=== PATIENT | male | born 1995 ===

== ENCOUNTER 2017-11-24 02:56 | Emergency (ER) | payer OTHER, MEDICARE ==
[2017-11-24 03:55] VITALS: TEMP 98.4
[2017-11-24] MEDS ORDERED: DiphenhydrAMINE 50 mg/ml Inj IM STA (04:22)
--- NOTE | 2017-11-24 04:56 | ED PDOC ---
HPI: Headache Time Seen by Provider: 11/24/17 04:05 Chief Complaint (Nursing): Headache Chief Complaint (Provider): Headache History Per: Patient History/Exam Limitations: no limitations Onset/Duration Of Symptoms: Days (x4) Current Symptoms Are (Timing): Still Present Additional Complaint(s): 22 year old male presents to the emergency department complaining of an intermittent thunderclap right sided temporal head ache onset four days. Currently patient notes it is worse on his left side, however. He reports taking Advil and Tylenol for the pain but states it provides no relief. Denies neck pain, fever, nausea, chest pain, and vomiting. He does say that he has been stressing out a lot recently due to his OCD. PMD: Pablo Cosme Past Medical History Reviewed: Historical Data, Nursing Documentation, Vital Signs Vital Signs: Last Vital Signs Temp 98.4 F 11/24/17 03:53 Pulse 68 11/24/17 03:53 Resp 16 11/24/17 03:53 BP 149/97 H 11/24/17 03:53 Pulse Ox 98 11/24/17 03:53 - Medical History PMH: Bipolar Disorder, Depression, Schizophrenia Denies: Diabetes, Hepatitis, HIV, HTN, Chronic Kidney Disease, Seizures, Sexually Transmitted Disease - Surgical History Surgical History: No Surg Hx - Family History Family History: States: Unknown Family Hx - Social History Current smoker - smoking cessation education provided: No Alcohol: None Drugs: Denies - Immunization History Hx Tetanus Toxoid Vaccination: No Hx Influenza Vaccination: No Hx Pneumococcal Vaccination: No - Home Medications Home Medications: Ambulatory Orders Medication Instructions Recorded Fluoxetine Hydrochloride [Prozac] 40 mg PO DAILY 06/06/14 Ibuprofen [Motrin] 600 mg PO Q8 #30 tab 06/17/15 OXcarbazepine [Trileptal] 150 mg PO BID #60 tab 07/08/15 DiphenhydrAMINE [Benadryl] 1 - 2 cap PO Q6H PRN #30 cap 11/24/17 - Allergies Allergies/Adverse Reactions: Allergies Allergy/AdvReac Type Severity Reaction Status Date / Time No Known Allergies Allergy Verified 07/06/15 17:51 Review of Systems ROS Statement: Except As Marked, All Systems Reviewed And Found Negative Constitutional: Negative for: Fever Cardiovascular: Negative for: Chest Pain Gastrointestinal: Negative for: Nausea, Vomiting Musculoskeletal: Negative for: Neck Pain Neurological: Positive for: Headache (right sided temporal thunderclap CRZU, but notes it is worse on the left currently) Physical Exam - Reviewed Nursing Documentation Reviewed: Yes Vital Signs Reviewed: Yes - Physical Exam Appears: Positive for: No Acute Distress Head Exam: Positive for: ATRAUMATIC, NORMOCEPHALIC Skin: Positive for: Normal Color, Warm, Dry Eye Exam: Positive for: Normal appearance, EOMI, PERRL Neck: Positive for: Normal, Painless ROM, Supple Cardiovascular/Chest: Positive for: Regular Rate, Rhythm. Negative for: Murmur Respiratory: Positive for: Normal Breath Sounds. Negative for: Accessory Muscle Use, Respiratory Distress Gastrointestinal/Abdominal: Positive for: Normal Exam, Soft. Negative for: Tenderness Back: Positive for: Normal Inspection Extremity: Positive for: Normal ROM Neurologic/Psych: Positive for: Alert, Oriented (x3). Negative for: Motor/ Sensory Deficits - ECG O2 Sat by Pulse Oximetry: 98 (RA) Pulse Ox Interpretation: Normal - Progress Re-evaluation Time: 06:30 Condition: Re-examined, Improved Medical Decision Making Medical Decision Making: Initial Impression: headaches Ddx: tension headaches, migraines, and likely brain mass Time: 4:22 Initial Plan: --Head CT w/o contrast --Benadryl 25mg IM --Reglan 10mg IM --Motrin 400mg PO 6:30 CT Head FINDINGS: Brain: No intracranial hemorrhage. No mass. No definite edema. Ventricles: No hydrocephalus. Bones/joints: No acute fracture. Soft tissues: Unremarkable. Sinuses: No acute sinusitis. Mastoid air cells: No mastoid effusion. Orbits: Unremarkable as visualized. IMPRESSION: 1. No definite acute intracranial abnormality. Scribe Attestation: Documented by Alia Nova, acting as a scribe for Gerasim A Orbelyan, MD Provider Scribe Attestation: All medical entries made by the Scribe were at my direction and personally dictated by me. I have reviewed the chart and agree that the record accurately reflects my personal performance of the history, physical exam, medical decision making, and the department course for this patient. I have also personally directed, reviewed, and agree with the discharge instructions and disposition. Disposition - Clinical Impression Clinical Impression: Headache - Patient ED Disposition Is Patient to be Admitted: No Doctor Will See Patient In The: Office Counseled Patient/Family Regarding: Studies Performed, Diagnosis, Need For Followup - Disposition Referrals: [facility] [Outside] Disposition: Routine/Home Disposition Time: 06:30 Condition: GOOD Additional Instructions: Follow up with your PCP in 2-3 days. Prescriptions: DiphenhydrAMINE [Benadryl] 1 - 2 cap PO Q6H PRN #30 cap PRN Reason: Itching / Pruritus Instructions: Headache, Adult (DC)
--- NOTE | 2017-11-24 06:30 | CT ---
EXAM: CT Head Without Intravenous Contrast CLINICAL HISTORY: 22 years old, male; Pain; Headache; Additional info: Right temporal headaches TECHNIQUE: Axial computed tomography images of the head/brain without intravenous contrast. All CT scans at this facility use one or more dose reduction techniques, viz.: automated exposure control; ma/kV adjustment per patient size (including targeted exams where dose is matched to indication; i.e. head); or iterative reconstruction technique. Coronal and sagittal reformatted images were created and reviewed. COMPARISON: CT - HEAD W/O CONTRAST 2015-06-17 21:15 FINDINGS: Brain: No intracranial hemorrhage. No mass. No definite edema. Ventricles: No hydrocephalus. Bones/joints: No acute fracture. Soft tissues: Unremarkable. Sinuses: No acute sinusitis. Mastoid air cells: No mastoid effusion. Orbits: Unremarkable as visualized. IMPRESSION: 1. No definite acute intracranial abnormality.
[2017-11-24 06:48] VITALS: BP 130/75; PULSE 57; RESP 24
[2017-11-24 20:21] VITALS: O2SAT 98
== END 2017-11-24 07:02 | disposition home or self-care (01) ==
LOC: H.ER 02:56
DX: R51 Headache (principal)
CPT/HCPCS: 70450; 96372; 99285; J1200; J2765

== ENCOUNTER 2018-01-14 01:01 | Emergency (ER) | payer MEDICARE, OTHER ==
[2018-01-14 02:32] VITALS: RESP 18; O2SAT 98
--- NOTE | 2018-01-14 03:23 | ED PDOC ---
HPI: Dental Pain/Injury Time Seen by Provider: 01/14/18 02:31 Chief Complaint (Nursing): Dental Pain History Per: Patient History/Exam Limitations: no limitations Onset/Duration Of Symptoms: Days Current Symptoms Are (Timing): Still Present Additional Complaint(s): Hx of bipolar disorder presenting with dental pain, states that he has an appointment tomorrow with his dentist to get evaluated for possible extraction. Denies fevers, drainage, headache. Past Medical History Reviewed: Historical Data, Nursing Documentation, Vital Signs Vital Signs: Last Vital Signs Temp 98.0 F 01/14/18 02:28 Pulse 67 01/14/18 02:28 Resp 18 01/14/18 02:28 BP 155/101 H 01/14/18 02:28 Pulse Ox 98 01/14/18 02:28 - Medical History PMH: Bipolar Disorder, Depression, Schizophrenia Denies: Diabetes, Hepatitis, HIV, HTN, Chronic Kidney Disease, Seizures, Sexually Transmitted Disease - Family History Family History: States: Unknown Family Hx - Immunization History Hx Tetanus Toxoid Vaccination: No Hx Influenza Vaccination: No Hx Pneumococcal Vaccination: No - Home Medications Home Medications: Ambulatory Orders Medication Instructions Recorded Fluoxetine Hydrochloride [Prozac] 40 mg PO DAILY 06/06/14 Ibuprofen [Motrin] 600 mg PO Q8 #30 tab 06/17/15 OXcarbazepine [Trileptal] 150 mg PO BID #60 tab 07/08/15 DiphenhydrAMINE [Benadryl] 1 - 2 cap PO Q6H PRN #30 cap 11/24/17 FLUoxetine [Fluoxetine HCl] 20 mg PO DAILY #15 cap 12/06/17 - Allergies Allergies/Adverse Reactions: Allergies Allergy/AdvReac Type Severity Reaction Status Date / Time aripiprazole [From Abilify] Allergy SHORTNESS Verified 12/06/17 17:22 OF BREATH Review of Systems ROS Statement: Except As Marked, All Systems Reviewed And Found Negative ENT: Positive for: Other (Tooth Pain) Physical Exam - Reviewed Nursing Documentation Reviewed: Yes Vital Signs Reviewed: Yes - Physical Exam Appears: Positive for: Well, Non-toxic, No Acute Distress Head Exam: Positive for: ATRAUMATIC, NORMAL INSPECTION, NORMOCEPHALIC Skin: Positive for: Normal Color, Warm, DRY ENT: Positive for: Other (No facial swelling, erythema; poor dentition, no evidence of pulpitis, teeth 29-32 nontender on palpation) - ECG O2 Sat by Pulse Oximetry: 98 Pulse Ox Interpretation: Normal Medical Decision Making Medical Decision Making: Patient with tooth pain No infection suspected Will give NSAID Advised followup with dentist tomorrow as scheduled Disposition - Clinical Impression Clinical Impression: Dental caries - Disposition Referrals: [facility] [Outside] Disposition: Routine/Home Disposition Time: 02:30 Condition: STABLE Instructions: Dental Pain (DC) Forms: [employer] (Tanzanian)
[2018-01-14 03:26] VITALS: BP 132/94; PULSE 74; TEMP 98.2
== END 2018-01-14 03:05 | disposition home or self-care (01) ==
LOC: H.ER 01:01
DX: K02.9 Dental caries, unspecified (principal)
CPT/HCPCS: 96372; 99283; J1885

== ENCOUNTER 2018-07-29 11:40 | Emergency (ER) | payer MEDICARE, OTHER ==
[2018-07-29 11:45] VITALS: TEMP 98.2
[2018-07-29] MEDS ORDERED: Amoxicillin-Clav 875-125 mg Tab PO STA (13:35)
[2018-07-29] MEDS ORDERED: Amoxicillin-Clav 875-125 mg Tab PO ONE (13:40)
--- NOTE | 2018-07-29 13:47 | ED PDOC ---
HPI: Headache Time Seen by Provider: 07/29/18 12:24 Chief Complaint (Nursing): Headache Chief Complaint (Provider): Headache/ Dental Pain; Med Refill History Per: Patient, Family (mother at bedside) History/Exam Limitations: no limitations Onset/Duration Of Symptoms: Days (x2) Current Symptoms Are (Timing): Still Present Quality: Pressure Additional Complaint(s): Patient is a 23 year old male who presents to the ED for evaluation of right upper dental pain and a right sided headache x 2 days. Patient reports that he had his wisdom teeth extracted 1 year ago and has not been to the dentist since. Patient further reports the headache and dental pain interfered with his ability to sleep last night. Patient took no medications prior to arrival for symptoms. He does note a foul odor to his breath recently as well. Of note, mother at bedside is requesting the patient's Prozac prescription be refilled. Mother notes that the patient has an upcoming appt with Dr Sun on 07/31/18, and that the patient has been out of his Prozac since the middle of June. Patient denies SI, HI, A/V hallucinations, fever, dizziness, ear pain, throat pain, cough, SOB, N/V/D, abdominal pain, facial swelling. PMD: unknown Past Medical History Reviewed: Historical Data, Nursing Documentation, Vital Signs Vital Signs: Last Vital Signs Temp 98.2 F 07/29/18 11:45 Pulse 76 07/29/18 11:45 Resp 18 07/29/18 11:45 BP 142/88 07/29/18 11:45 Pulse Ox 99 07/29/18 11:45 - Medical History PMH: Bipolar Disorder, Depression Other PMH: OCD - Surgical History Other surgeries: wisdom teeth extraction - Family History Family History: States: Unknown Family Hx - Living Arrangements Living Arrangements: With Family - Social History Current smoker - smoking cessation education provided: No Alcohol: None Drugs: Denies - Home Medications Home Medications: Ambulatory Orders Medication Instructions Recorded Fluoxetine HCl [Prozac] 40 mg PO DAILY 06/26/18 Acetaminophen [Acetaminophen 8 650 mg PO Q8 PRN #21 tablet.er 07/29/18 Hour] Amoxicillin/Clavulanate [Augmentin 1 tab PO BID #14 tab 07/29/18 875 MG-125 MG] Fluoxetine HCl [Prozac] 40 mg PO DAILY #7 capsule 07/29/18 RX: Ibuprofen [Motrin Tab] 800 mg PO Q8 PRN #21 tab 07/29/18 - Allergies Allergies/Adverse Reactions: Allergies Allergy/AdvReac Type Severity Reaction Status Date / Time aripiprazole [From Abilify] Allergy SHORTNESS Verified 06/26/18 22:06 OF BREATH Review of Systems ROS Statement: Except As Marked, All Systems Reviewed And Found Negative ENT: Positive for: Other (right upper tooth pain) Neurological: Positive for: Headache Physical Exam - Reviewed Nursing Documentation Reviewed: Yes Vital Signs Reviewed: Yes - Physical Exam Comments: GENERALIZED APPEARANCE: Patient is awake, alert, oriented x3 in no acute distress.Resting comfortably. SKIN: Warm, dry; (-) cyanosis; (-) rash. HEAD: (-) scalp swelling or tenderness EYES: (-) conjunctival pallor, (-) scleral icterus. ENMT:TMs: nonbulging and nonerythematous. Pharynx: clear uvula midline (-) exudate (-) erythema. (-) sinus tenderness; mucous membranes moist. Airway patent, (-) stridor. (+) tenderness to upper, right 1st and 2nd molars (-) gingival inflammation, fluctuance (-) tongue elevation (+) dental plaque (+) foul odor to breath NECK:Supple, FROM (-) tenderness, (-) stiffness, (-) meningismus, (-) lymphadenopathy. CHEST AND RESPIRATORY: (-) rales, (-) rhonchi, (-) wheezes; breath sounds equal bilaterally. Respirations even and nonlabored. HEART AND CARDIOVASCULAR: (-) irregularity ABDOMEN AND GI: Soft; (-) tenderness. EXTREMITIES: (-) deformity. NEURO AND PSYCH: Mental status as above. melter assistant: Pupilsequal and reactive; EOMI and painless; (-) facial asymmetry; tongue and uvula midline. Strength and sensation symmetric throughout.Speech: clear. Gait: steady. Cerebellar tests intact. - ECG O2 Sat by Pulse Oximetry: 99 (RA) Pulse Ox Interpretation: Normal Medical Decision Making Medical Decision Makin Initial Impression: Dental pain, Headache; Medication Refill Plan: -Toradol 30mg IM -Augmentin 875mg PO -Crisis Evaluation -Re-evaluation 1455 Per crisis evaluation, patient to be supplied with a week refill of Prozac 40mg QID. Patient to follow up with Dr Sun/Clinic as scheduled. On re-evaluation, patient reports improvement of symptoms. On exam, patient remains AAOx3, in no acute distress. Vitals stable. Lab/Diagnostic results d/w the patient in great detail. Diagnosis of acute dental pain, probable dental infection; headache, medication refill d/w the patient. Based on history, exam and diagnostic results, plan will be for outpatient follow up with dental/psych. Patient instructed to follow-up with pmd / referral provided / the clinic in 1- 2 days without fail. Advised to take medication as prescribed. Return to the emergency room at any time for any new or worsening symptoms. Patient states he fully agrees with and understands discharge instructions. States that he agrees with the plan and disposition. Verbalized and repeated discharge instructions and plan. I have given the patient opportunity to ask any additional questions. Disposition - Clinical Impression Clinical Impression: Pain, dental, Dental infection, Headache, Medication refill - Patient ED Disposition Is Patient to be Admitted: No Counseled Patient/Family Regarding: Studies Performed, Diagnosis, Need For Followup, Rx Given - Disposition Referrals: [facility] [Outside] your, dentist [Other] Shital Sun MD [Staff Provider] - Disposition: Routine/Home Disposition Time: 14:55 Condition: STABLE Additional Instructions: The emergency medical care you received today was directed at your acute symptoms. If you were prescribed any medication, please fill it and take as directed. It may take several days for your symptoms to resolve. Return to the Emergency Department if your symptoms worsen, do not improve, or if you have any other problems. Please contact your doctor in 2 days for re-evaluation and follow up / or call one of the physicians/clinics you have been referred to that are listed on the Patient Visit Information form that is included in your discharge packet. Bring any paperwork you were given at discharge with you along with any medications you are taking to your follow up visit. Our treatment cannot replace ongoing medical care by a primary care provider (PCP) outside of the emergency department. Prescriptions: Acetaminophen [Acetaminophen 8 Hour] 650 mg PO Q8 PRN #21 tablet.er PRN Reason: Pain, Moderate (4-7) Amoxicillin/Clavulanate [Augmentin 875 MG-125 MG] 1 tab PO BID #14 tab Fluoxetine HCl [Prozac] 40 mg PO DAILY #7 capsule RX: Ibuprofen [Motrin Tab] 800 mg PO Q8 PRN #21 tab PRN Reason: Pain, Moderate (4-7) Instructions: Headache, Adult, Tooth Decay, Adult (DC), Dental Pain (DC) Forms: [employer] (Kinyarwanda) Print Language: HEBREW - POA Present On Arrival: None
[2018-07-29 15:15] VITALS: BP 135/80; PULSE 88; RESP 20
[2018-07-30 22:01] VITALS: O2SAT 99
== END 2018-07-29 15:12 | disposition home or self-care (01) ==
LOC: H.ER 11:40
DX: Z76.0 Encounter for issue of repeat prescription (principal); K04.7 Periapical abscess without sinus; R51 Headache
CPT/HCPCS: 96372; 99285; J1885

== ENCOUNTER 2018-10-08 00:47 | Emergency (ER) | payer MEDICARE, OTHER ==
[2018-10-08 01:06] VITALS: RESP 16; O2SAT 99
[2018-10-08] MEDS ORDERED: Sodium Chloride 0.9% 1,000 ML IV STA (01:42)
--- NOTE | 2018-10-08 01:44 | ED PDOC ---
HPI: Headache Time Seen by Provider: 10/08/18 01:16 Chief Complaint (Nursing): Headache Chief Complaint (Provider): headache History Per: Patient, Family History/Exam Limitations: no limitations Onset/Duration Of Symptoms: Days (1 week), Waxing/Waning Current Symptoms Are (Timing): Still Present Quality: "Pain" Additional Complaint(s): 23 y/o male presents for evaluation of intermittent left-sided headache x 1 week. Mother reports patient has had migraine headaches for the last 4 years. Patient reports decreased appetite due to pain; states has not been taking medication for the pain. Denies fever, dizziness, nausea/vomiting, extremity numbness/weakness, neck pain, chest pain, shortness of breath, palpitations. Past Medical History Reviewed: Historical Data, Nursing Documentation, Vital Signs Vital Signs: Last Vital Signs Temp 98.5 F 10/08/18 01:04 Pulse 90 10/08/18 01:04 Resp 16 10/08/18 01:04 BP 143/91 H 10/08/18 01:04 Pulse Ox 99 10/08/18 01:04 Primary Care Physician: Pablo Cosme MD - Medical History PMH: Bipolar Disorder, Depression, Schizophrenia Denies: Diabetes, Hepatitis, HIV, HTN, Chronic Kidney Disease, Seizures, Sexually Transmitted Disease - Surgical History Surgical History: No Surg Hx - Family History Family History: States: Unknown Family Hx - Immunization History Hx Tetanus Toxoid Vaccination: No Hx Influenza Vaccination: No Hx Pneumococcal Vaccination: No - Home Medications Home Medications: Ambulatory Orders Medication Instructions Recorded Fluoxetine HCl [Prozac] 40 mg PO DAILY 06/26/18 Acetaminophen [Acetaminophen 8 650 mg PO Q8 PRN #21 tablet.er 07/29/18 Hour] Amoxicillin/Clavulanate [Augmentin 1 tab PO BID #14 tab 07/29/18 875 MG-125 MG] Fluoxetine HCl [Prozac] 40 mg PO DAILY #7 capsule 07/29/18 Ibuprofen [Motrin Tab] 800 mg PO Q8 PRN #21 tab 07/29/18 Naproxen [Naprosyn] 500 mg PO Q12 PRN #14 tablet 10/08/18 - Allergies Allergies/Adverse Reactions: Allergies Allergy/AdvReac Type Severity Reaction Status Date / Time aripiprazole [From Abilify] Allergy SHORTNESS Verified 06/26/18 22:06 OF BREATH Review of Systems ROS Statement: Except As Marked, All Systems Reviewed And Found Negative Neurological: Positive for: Headache Physical Exam - Reviewed Nursing Documentation Reviewed: Yes Vital Signs Reviewed: Yes - Physical Exam Appears: Positive for: Well, Non-toxic, No Acute Distress Head Exam: Positive for: ATRAUMATIC, NORMAL INSPECTION, NORMOCEPHALIC Skin: Positive for: Normal Color Eye Exam: Positive for: Normal appearance ENT: Positive for: Normal ENT Inspection Cardiovascular/Chest: Positive for: Regular Rate, Rhythm Respiratory: Positive for: Normal Breath Sounds Gastrointestinal/Abdominal: Positive for: Normal Exam Back: Positive for: Normal Inspection Extremity: Positive for: Normal ROM Neurological/Psych: Positive for: Awake, Alert, Oriented (x3) - Laboratory Results Result Diagrams: 10/08/18 02:14 10/08/18 02:14 - ECG O2 Sat by Pulse Oximetry: 99 - Progress ED Course And Treament: -toradol mother requesting blood work -cbc -cmp -IV NS bolus On re-eval, patient resting comfortably; states headache resolved Patient educated on findings, discharged with rx Naproxen Advised follow up PMD within 2-3 days Return precautions given Disposition - Clinical Impression Clinical Impression: Headache - Patient ED Disposition Is Patient to be Admitted: No Counseled Patient/Family Regarding: Studies Performed, Diagnosis, Need For Followup, Rx Given - Disposition Referrals: Pablo Cosme MD [Primary Care Provider] - Disposition: Routine/Home Disposition Time: 03:20 Condition: IMPROVED Prescriptions: Naproxen [Naprosyn] 500 mg PO Q12 PRN #14 tablet PRN Reason: Pain, Moderate (4-7) Instructions: Headache, Adult
[2018-10-08 02:24] LABS: BASO % 0.5 % (0.0-2.0); EOS # 0.1 K/uL (0.0-0.7); EOS % 1.5 % (0.0-4.0); HEMOGLOBIN 15.8 g/dL (12.0-18.0); LYMPH % 30.3 % (20.0-40.0); MEAN CELL VOLUME 87.2 fl (80.0-94.0); MEAN CORPUSCULAR HEMOGLOBIN 29.8 pg (27.0-31.0); MEAN CORPUSCULAR HGB CONC 34.2 g/dL (33.0-37.0); MEAN PLATELET VOLUME 8.5 fl (7.2-11.7); MONO # 0.8 K/uL (0.0-0.8); MONO % 7.9 % (0.0-10.0); NEUT % 59.8 % (50.0-75.0); RBC 5.32 Mil/uL (4.40-5.90); RED CELL DISTRIBUTION WIDTH 13.7 % (11.5-14.5); WHITE BLOOD COUNT 9.9 K/uL (4.8-10.8)
[2018-10-08 02:44] LABS: ALB/GLOB RATIO 1.6 (1.0-2.1)
[2018-10-08 03:08] LABS: ALBUMIN 4.7 g/dL (3.5-5.0); ALT/SGPT 25 U/L (21-72); AST/SGOT 41 U/L (17-59); BLOOD UREA NITROGEN 7 mg/dl (9-20); CALCIUM 9.7 mg/dL (8.4-10.2); GFR NON-AFRICAN AMERICAN > 60
[2018-10-08 03:42] VITALS: BP 134/86; PULSE 86; TEMP 98.1
== END 2018-10-08 03:30 | disposition home or self-care (01) ==
LOC: H.ER 00:47
DX: R51 Headache (principal); Z86.59 Personal history of other mental and behavioral disorders
CPT/HCPCS: 80053; 85025; 96374; 99285; J1885; J7030

== ENCOUNTER 2018-10-14 10:58 | Emergency (ER) | payer MEDICARE, OTHER ==
[2018-10-14 11:08] VITALS: BP 142/90; PULSE 81; TEMP 98.6; O2SAT 99
[2018-10-14 11:09] VITALS: BMI 30.5
--- NOTE | 2018-10-14 13:02 | RAD ---
Date of service: 10/14/2018 HISTORY: Cough COMPARISON: 06/07/2014. TECHNIQUE: Chest PA and lateral views FINDINGS: LUNGS: No active pulmonary disease. PLEURA: No significant pleural effusion identified. No pneumothorax apparent. CARDIOVASCULAR: No aortic atherosclerotic calcification present. Normal cardiac size. No pulmonary vascular congestion. OSSEOUS STRUCTURES: No significant abnormalities. VISUALIZED UPPER ABDOMEN: Normal. OTHER FINDINGS: None. IMPRESSION: No active pulmonary disease. No significant interval change compared to the prior examination(s).
--- NOTE | 2018-10-14 13:05 | ED PDOC ---
HPI: CCC, URI, Sore Throat Time Seen by Provider: 10/14/18 11:15 Chief Complaint (Nursing): Cough, Cold, Congestion History Per: Patient, Family History/Exam Limitations: no limitations Onset/Duration Of Symptoms: Days Additional Complaint(s): 23 yo M presenting with 5 days of cough productive of clear mucus, cough is worse at night, feels like he is choking on his saliva. He reports pain to his back when he is coughing only. He also notes some nasal congestion. Pt's sister had a cough but got better. He denies any fevers, recent travel, sore throat, difficulty breathing, SOB. PMD: Dr. Cosme Past Medical History Reviewed: Historical Data, Nursing Documentation, Vital Signs Vital Signs: Last Vital Signs Temp 98.6 F 10/14/18 11:07 Pulse 81 10/14/18 11:07 Resp 18 10/14/18 11:07 BP 142/90 10/14/18 11:07 Pulse Ox 99 10/14/18 11:07 - Medical History PMH: Bipolar Disorder, Depression, Schizophrenia Denies: Diabetes, Hepatitis, HIV, HTN, Chronic Kidney Disease, Seizures, Sexually Transmitted Disease - Family History Family History: States: Unknown Family Hx - Immunization History Hx Tetanus Toxoid Vaccination: No Hx Influenza Vaccination: No Hx Pneumococcal Vaccination: No - Home Medications Home Medications: Ambulatory Orders Medication Instructions Recorded Fluoxetine HCl [Prozac] 40 mg PO DAILY 06/26/18 Acetaminophen [Acetaminophen 8 650 mg PO Q8 PRN #21 tablet.er 07/29/18 Hour] Amoxicillin/Clavulanate [Augmentin 1 tab PO BID #14 tab 07/29/18 875 MG-125 MG] Fluoxetine HCl [Prozac] 40 mg PO DAILY #7 capsule 07/29/18 Ibuprofen [Motrin Tab] 800 mg PO Q8 PRN #21 tab 07/29/18 Naproxen [Naprosyn] 500 mg PO Q12 PRN #14 tablet 10/08/18 Albuterol HFA [Ventolin HFA 90 1 puff IH Q6 #1 inhaler 10/14/18 mcg/actuation (8 g)] Azithromycin [Z-Marcos] 250 mg PO DAILY 5 Days #6 tab 10/14/18 predniSONE [predniSONE Tab] 20 mg PO DAILY 6 Days #11 tab 10/14/18 - Allergies Allergies/Adverse Reactions: Allergies Allergy/AdvReac Type Severity Reaction Status Date / Time aripiprazole [From Abilify] Allergy SHORTNESS Verified 10/14/18 11:13 OF BREATH Review of Systems Constitutional: Negative for: Fever Cardiovascular: Positive for: Chest Pain (when coughing) Respiratory: Positive for: Cough. Negative for: Shortness of Breath, Hemoptysis, SOB with Exertion, Pleuritic Pain, Wheezing Physical Exam - Reviewed Nursing Documentation Reviewed: Yes Vital Signs Reviewed: Yes - Physical Exam Comments: GENERAL APPEARANCE: Patient is awake, alert, oriented x 3, in no acute distress. SKIN: Warm, dry; (-) cyanosis. EYES: (-) conjunctival pallor. ENMT: Mucous membranes moist. Airway patent: (-) stridor. Pharynx: (-) swelling, (-) erythema, (-) exudate. NECK: (-) tenderness, (-) stiffness, (-) lymphadenopathy. CHEST AND RESPIRATORY: (-) rhonchi, (-) rales, (-) wheezes, (-) pleural rub; breath sounds equal bilaterally. HEART AND CARDIOVASCULAR: (-) irregularity; (-) murmur, (-) gallop. ABDOMEN AND GI: Soft; (-) tenderness. EXTREMITIES: (-) deformity; (-) edema. NEURO AND PSYCH: Mental status as above. Cranial nerves grossly intact; strength symmetric. - ECG O2 Sat by Pulse Oximetry: 99 Medical Decision Making Medical Decision Making: initial eval - bronchitis -- CXR r/o pneumonia -- re eval 13:00 Date of service: 10/14/2018 HISTORY: Cough COMPARISON: 06/07/2014. TECHNIQUE: Chest PA and lateral views FINDINGS: LUNGS: No active pulmonary disease. PLEURA: No significant pleural effusion identified. No pneumothorax apparent. CARDIOVASCULAR: No aortic atherosclerotic calcification present. Normal cardiac size. No pulmonary vascular congestion. OSSEOUS STRUCTURES: No significant abnormalities. VISUALIZED UPPER ABDOMEN: Normal. OTHER FINDINGS: None. IMPRESSION: No active pulmonary disease. No significant interval change compared to the prior examination(s). pt likely with bronchitis, no current chest or back pain, only occurs when coughing which happens at night. will treat with medications Discussed results, diagnosis, treatment, return precautions and f/u with pt who is understanding, in agreement and stable for dc Disposition - Clinical Impression Clinical Impression: Bronchitis - Patient ED Disposition Is Patient to be Admitted: No Counseled Patient/Family Regarding: Studies Performed, Diagnosis, Need For Followup, Rx Given - Disposition Referrals: Pablo Cosme MD [Staff Provider] - Disposition: Routine/Home Disposition Time: 13:07 Condition: STABLE Additional Instructions: The emergency medical care you received today was directed at your acute symptoms. If you were prescribed any medication, please fill it and take as directed. It may take several days for your symptoms to resolve. Return to the Emergency Department if your symptoms worsen, do not improve, or if you have any other problems. Please contact your doctor in 2 days for re-evaluation and follow up / or call one of the physicians/clinics you have been referred to that are listed on the Patient Visit Information form that is included in your discharge packet. Bring any paperwork you were given at discharge with you along with any medications you are taking to your follow up visit. Our treatment cannot replace ongoing medical care by a primary care provider (PCP) outside of the emergency department. Prescriptions: Albuterol HFA [Ventolin HFA 90 mcg/actuation (8 g)] 1 puff IH Q6 #1 inhaler Azithromycin [Z-Marcos] 250 mg PO DAILY 5 Days #6 tab predniSONE [predniSONE Tab] 20 mg PO DAILY 6 Days #11 tab Instructions: Acute Bronchitis Print Language: SCOTTISH - POA Present On Arrival: None
[2018-10-14 13:21] VITALS: RESP 16
== END 2018-10-14 13:22 | disposition home or self-care (01) ==
LOC: H.ER 10:58
DX: J40 Bronchitis, not specified as acute or chronic (principal); Z86.59 Personal history of other mental and behavioral disorders; Z79.899 Other long term (current) drug therapy

== ENCOUNTER 2018-11-15 03:42 | Emergency (ER) | payer MEDICARE, OTHER ==
[2018-11-15 03:43] VITALS: BMI 30.5
[2018-11-15 03:51] VITALS: BP 132/86; PULSE 65; RESP 16; TEMP 98.3; O2SAT 98
--- NOTE | 2018-11-15 04:23 | ED PDOC ---
HPI: Dental Pain/Injury Time Seen by Provider: 11/15/18 03:53 Chief Complaint (Nursing): Dental Pain Chief Complaint (Provider): tooth ache x 3 weeks History Per: Patient History/Exam Limitations: no limitations Onset/Duration Of Symptoms: Days (3 weeks) Current Symptoms Are (Timing): Still Present Severity: Moderate Pain Scale Rating Of: 7 Quality: Sharp Additional History Per: Patient, Family (mother) Additional Complaint(s): Patient is a 23 year old male with no sig PMHX c/o right sided upper toothache for 3 weeks. Patient states he intends to see dentist today, but would like to start antibiotic. He has mild swelling to right side of face and pain with mastication. He denies fever or chills. Past Medical History Reviewed: Historical Data, Nursing Documentation, Vital Signs Vital Signs: Last Vital Signs Temp 98.3 F 11/15/18 03:50 Pulse 65 11/15/18 03:50 Resp 16 11/15/18 03:50 BP 132/86 11/15/18 03:50 Pulse Ox 98 11/15/18 03:50 Primary Care Provider: Pablo Cosme - Medical History PMH: Bipolar Disorder, Depression, Schizophrenia Denies: Diabetes, Hepatitis, HIV, HTN, Chronic Kidney Disease, Seizures, Sexually Transmitted Disease - Family History Family History: States: Unknown Family Hx - Immunization History Hx Tetanus Toxoid Vaccination: No Hx Influenza Vaccination: No Hx Pneumococcal Vaccination: No - Home Medications Home Medications: Ambulatory Orders Medication Instructions Recorded Fluoxetine HCl [Prozac] 40 mg PO DAILY 06/26/18 Acetaminophen [Acetaminophen 8 650 mg PO Q8 PRN #21 tablet.er 07/29/18 Hour] Amoxicillin/Clavulanate [Augmentin 1 tab PO BID #14 tab 07/29/18 875 MG-125 MG] Fluoxetine HCl [Prozac] 40 mg PO DAILY #7 capsule 07/29/18 Ibuprofen [Motrin Tab] 800 mg PO Q8 PRN #21 tab 07/29/18 Naproxen [Naprosyn] 500 mg PO Q12 PRN #14 tablet 10/08/18 Albuterol HFA [Ventolin HFA 90 1 puff IH Q6 #1 inhaler 10/14/18 mcg/actuation (8 g)] Azithromycin [Z-Marcos] 250 mg PO DAILY 5 Days #6 tab 10/14/18 predniSONE [predniSONE Tab] 20 mg PO DAILY 6 Days #11 tab 10/14/18 Amoxicillin/Clavulanate [Augmentin 1 tab PO BID #14 tab 11/15/18 875 MG-125 MG] - Allergies Allergies/Adverse Reactions: Allergies Allergy/AdvReac Type Severity Reaction Status Date / Time aripiprazole [From Abilify] Allergy SHORTNESS Verified 10/14/18 11:13 OF BREATH Review of Systems ROS Statement: Except As Marked, All Systems Reviewed And Found Negative ENT: Positive for: Other (toothache) Physical Exam - Physical Exam Appears: Positive for: Non-toxic Head Exam: Positive for: ATRAUMATIC, NORMAL INSPECTION (trace right facial swelling noted. No redness or adenopathy), NORMOCEPHALIC Skin: Positive for: Normal Color, Warm, Dry Eye Exam: Positive for: Normal appearance ENT: Positive for: Normal ENT Inspection, Other (right upper 1st/2nd molar show dental caries; no drainage or erythema) Neck: Positive for: Normal - ECG O2 Sat by Pulse Oximetry: 98 Medical Decision Making Medical Decision Makin yo male with dental caries Toradol IM ordered Stable for discharge home; provider encouraged patient to follow up today with dentist RX Augmentin/Ibuprofen Disposition - Clinical Impression Clinical Impression: Toothache, Dental caries - Disposition Referrals: Pablo Cosme MD [Primary Care Provider] - Disposition: Routine/Home Disposition Time: 04:26 Condition: STABLE Prescriptions: Amoxicillin/Clavulanate [Augmentin 875 MG-125 MG] 1 tab PO BID #14 tab Instructions: Dental Pain (DC) Forms: [employer] ([place])
== END 2018-11-15 04:32 | disposition home or self-care (01) ==
LOC: H.ER 03:42
DX: K08.89 Other specified disorders of teeth and supporting structures (principal); K02.9 Dental caries, unspecified; Z86.59 Personal history of other mental and behavioral disorders
CPT/HCPCS: 96372; 99282; J1885